=== PATIENT | male | born 1980 | race Caucasian/White ===

== ENCOUNTER 2020-07-05 20:56 | Emergency (ER) | payer MEDICAID, OTHER ==
[~2020-07-05] VITALS: Ht 175.3 cm; Wt 104.3 kg
[2020-07-05 22:17] VITALS: BP 128/76
--- NOTE | 2020-07-05 22:30 | NUR ---
SEEN AND EXAMINED BY JENNY WITH ORDERS AND CARRIED OUT.
[2020-07-05] MEDS ORDERED: AZITHROMYCIN 250 MG TAB PO ONE (22:35)
[2020-07-05] MEDS ORDERED: cefTRIAXone 1,000 MG in LIDOCAINE MPF 1% 2.1 ML IM ONE (22:35)
[2020-07-05] MEDS ORDERED: DEXAMETHASONE 4 MG/ML VIAL IM ONE (22:35)
[2020-07-05] MEDS ORDERED: ALBUTEROL HFA MDI 90 MCG/ACTUATION 8 GM INH ONE (22:35)
[2020-07-05] MEDS ORDERED: cefTRIAXone 1,000 MG VIAL ONE (22:55)
[2020-07-05] MEDS ORDERED: LIDOCAINE MPF 1% 5 ML ONE (22:56)
--- NOTE | 2020-07-05 23:10 | NUR ---
MEDICATED PER [facility] ORDER, TOLERATED WELL.
--- NOTE | 2020-07-05 23:15 | NUR ---
PT UNAVAILABLE AT THIS TIME FOR MDI WILL CHECK BACK AT A LATER TIME
--- NOTE | 2020-07-05 23:16 | NUR ---
SWAB DONE AND SENT TO LAB
--- NOTE | 2020-07-06 00:45 | NUR ---
ALL RESULTS BACK AND NOTED BY ERMD AND FOR D/C
[2020-07-06 00:55] VITALS: BP 125/78
--- NOTE | 2020-07-06 00:55 | NUR ---
Patient discharged with v/s stable. Written and verbal after care instructions given and explained. Patient alert, oriented and verbalized understanding of instructions. Ambulatory with steady gait. All questions addressed prior to discharge. ID band removed. Patient advised to follow up with PMD. Rx of PREDNISONE, AZITHROMYCIN, AUGMENTIN, VENTOLIN given. Patient educated on indication of medication including possible reaction and side effects. Opportunity to ask questions provided and answered.
== END 2020-07-06 00:55 | disposition home or self-care (01) ==
LOC: MED 20:56
DX: U07.1 COVID-19 (principal); J12.89 Other viral pneumonia
CPT/HCPCS: 71045; 87426; 87804; 96372; 99284; J0696; J1100; J2001; J3535